=== PATIENT | male | born 1985 | race Hispanic/Latino ===

== ENCOUNTER 2024-04-14 07:34 | Outpatient (CLI) | payer BC | END 2024-04-14 07:35 | disposition home or self-care (01) | LOC: CSHULT 07:34 | PROVIDERS: ATTEND Internal Medicine Gastroenterology | DX: R74.01 Elevation of levels of liver transaminase levels (principal); Z80.0 Family history of malignant neoplasm of digestive organs | CPT/HCPCS: 76705 ==